=== PATIENT | female | born 1985 | race Caucasian/White ===

== ENCOUNTER 2019-11-16 18:39 | Emergency (ER) | payer OTHER, SELFPAY ==
[2019-11-16 19:20] VITALS: BP 137/85; PULSE 105; RESP 18; TEMP 36.9; O2SAT 100
--- NOTE | 2019-11-16 20:13 | ED.URI ---
HPI - URI/Sore Throat General Chief Complaint: Upper Respiratory Infection Stated Complaint: strep test Time Seen by Provider: 11/16/19 20:15 Source: patient and RN notes reviewed History of Present Illness HPI Narrative: 34 year old female who presents to express care with complaints of sore throat and hoarseness since yesterday, 3 to 4 days of head congestion, runny nose, fevers, cough, and ear pain. Patient also states dental pain to left#18 lower molar with noted caries. Patient states that she also has generalized body aches and fatigue, states is 12 weeks .Patient admits to tobacco abuse of 1/2ppd of cigarettes since age 19.Patient states that she has been taking tylenol for her discomfort. Patient states that she can take Amoxicillin though listed penicillin as allergy. MD elicited complaint: fever, cough, sore throat, rhinorrhea and nasal congestion Onset (ago): day(s) (3-4) Consistency: progressively worsening Severity: moderate Pain scale (0-10): 7 Description of mucous: clear Able to tolerate fluids by mouth: Yes Exacerbating factors: swallowing Relieving factors: nothing Associated symptoms: fever, chills, voice changes, rhinorrhea, nasal congestion, cough and other (dental pain) Treatments prior to arrival: acetaminophen Related Data Home Medications Medication Instructions Recorded Confirmed PNV cmb#95-ferrous fumarate-FA 1 tablet PO DAILY 11/16/19 11/16/19 [] Allergies Allergy/AdvReac Type Severity Reaction Status Date / Time Penicillins Allergy Intermediate hives Verified 11/16/19 19:44 Review of Systems Constitutional: Comments: CONSTITUTIONAL:Reports some fever, chills, or sweats. EYES: Denies visual changes, redness, or discharge. ENT: reports rhinorrhea, congestion, sore throat, or otalgia.also dental pain left lower molar CARDIOVASCULAR: Denies chest pain, palpitations, or edema. RESPIRATORY:occasional cough denies dyspnea. GASTROINTESTINAL: Denies abdominal pain, nausea, vomiting, or diarrhea. GENITOURINARY: Denies dysuria or hematuria. SKIN: Denies rash or itching. MUSCULOSKELETAL: Denies back pain, joint pain, body aches NEUROLOGIC: Denies headache, numbness, or weakness. PSYCHIATRIC: Denies anxiety or depression. [facility] Past Medical History Medical History (Updated 11/21/19 @ 10:05 by Mimi Mcgraw NP) Ovarian cyst Surgical History Surgical History (Updated 10/22/19 @ 01:26 by Rose Goode) H/O LEEP History of section History of left oophorectomy Social History Social History (Updated 10/22/19 @ 01:26 by Rose Goode) Smoking status: Current every day smoker Second hand tobacco smoke exposure: Yes Gender identity (if verbalized by the patient): Female Exam Narrative: Exam Narrative: GENERAL: Well-appearing, well-nourished, and in no acute distress. HEAD: Normocephalic, atraumatic. EYES: PERRLA and EOMI. ENT: Nares red, clear rhinorrhea no epistaxis. Mucous membranes moist.TM's normal with good light reflex, throat mild redness no tonsil enlargement lesions or exudate,post nasal drainage noted, dental caries to #18 tooth with voiced pain, mild redness of gum no drainage NECK: Supple.no lymphadenopathy CHEST: Clear to auscultation. No respiratory distress.SAO2 100% on room air HEART: Regular rate and rhythm. No murmur heard. Normal peripheral pulses. ABDOMEN: Soft, nontender, nondistended, normal active bowel sounds. EXTREMITIES: Normal range of motion. No edema. SKIN: Warm, dry, no rash. NEURO: No focal deficits. Alert and oriented x3. Course Vital Signs Vital signs: Vital Signs Temperature 36.9 C 11/16/19 19:20 Pulse Rate 105 H 11/16/19 19:20 Respiratory Rate 18 11/16/19 19:20 Blood Pressure 137/85 11/16/19 19:20 Pulse Oximetry 100 11/16/19 19:20 Temperature 36.9 C 11/16/19 19:20 Pulse Rate 105 H 11/16/19 19:20 Respiratory Rate 18 11/16/19 19:20 Blood Pressure 137/85 11/16/19 19:20 Pulse Oximetry
== END 2019-11-16 20:50 | disposition home or self-care (01) ==
PROVIDERS: Emergency Provider Registered Nurse
DX: K08.89 Other specified disorders of teeth and supporting structures (principal); J06.9 Acute upper respiratory infection, unspecified; J02.9 Acute pharyngitis, unspecified; F17.200 Nicotine dependence, unspecified, uncomplicated
CPT/HCPCS: 87081; 87804; 87880; 99213; G0463

== ENCOUNTER 2020-04-04 16:54 | Emergency (ER) | payer OTHER, SELFPAY ==
[2020-04-04 16:58] VITALS: BP 132/83; PULSE 120; RESP 20; TEMP 36.6; O2SAT 98
--- NOTE | 2020-04-04 17:29 | ED.GENADULT ---
HPI - General Adult General Chief complaint: Skin/Abscess/Foreign Body Stated complaint: bites all over body Time Seen by Provider: 04/04/20 17:29 Source: patient and RN notes reviewed Mode of arrival: ambulatory Limitations: no limitations History of Present Illness HPI narrative: This is a 35 years old female presents to the office for an evaluation of itchy lesions on her body. She noticed lesions after she stays at her friend house. She concerns for possible scabies or bedbugs after looked up her symptoms online; so she brought her back in to get a professional opinion. She is 7months . She tried to Neosporin and peroxide for her skin lesions. Related Data Home Medications Medication Instructions Recorded Confirmed PNV cmb#95-ferrous fumarate-FA 1 tablet PO DAILY 11/16/19 04/04/20 [] Allergies Allergy/AdvReac Type Severity Reaction Status Date / Time Penicillins Allergy Intermediate hives Verified 11/16/19 19:44 Review of Systems Review of Systems: Narrative: CONSTITUTIONAL: Denies fever or feeling ill ENT: Denies congestion CARDIOVASCULAR: Denies chest pain RESPIRATORY: Denies dyspnea GASTROINTESTINAL: Denies abdominal pain, nausea, vomiting SKIN: Reports itchy lesions throughout her body especially on her extremities MUSCULOSKELETAL: Denies acute back pain NEUROLOGIC: Denies lightheaded All other systems reviewed are negative, except as documented in HPI. PMFSH Past Medical History Medical History Ovarian cyst Surgical History Surgical History H/O LEEP History of section History of left oophorectomy Family History Family History Other Cerebrovascular accident Diabetes mellitus Heart disease Hypertension Social History Social History Smoking status: Current every day smoker Second hand tobacco smoke exposure: Yes Gender identity (if verbalized by the patient): Female Comments At time of signature, I agree with nursing past medical, surgical, social and family history. There is no relevant family history pertinent to the presenting complaint. Exam Narrative: Exam Narrative: GENERAL: This is a well-nourished, well-developed patient, in no apparent distress. CARDIOVASCULAR: Regular rate and rhythm without murmurs, gallops, or rubs. RESPIRATORY: Clear to auscultation. Breath sounds equal bilaterally. No wheezes, rales, or rhonchi. GASTROINTESTINAL: Abdomen soft, protrude, non-tender. Bowel sounds are active No guarding. SKIN: upper and lower extremity noted irregular patterns of nodules to papular erythema and some have excoriations and scab over the lesions. Lesion consistent with bedbug patterns. No dhara sign. No obvious tic levi. NEURO: awake, alert, and oriented to person, place and time. There were no obvious focal neurologic abnormalities. Steady gait PSY: appears anxious and very talkative Heth Coma Scale Eye Opening: Spontaneous 4 Adair Coma Scale Motor: Obeys Commands 6 Heth Coma Scale Verbal: Oriented 5 Course Vital Signs Vital signs: Vital Signs Temperature 97.9 F 04/04/20 16:58 Pulse Rate 120 H 04/04/20 16:58 Respiratory Rate 04/04/20 16:58 Blood Pressure 132/83 04/04/20 16:58 Pulse Oximetry 98 04/04/20 16:58 Temperature 97.9 F 04/04/20 16:58 Pulse Rate 120 H 04/04/20 16:58 Respiratory Rate 04/04/20 16:58 Blood Pressure 132/83 04/04/20 16:58 Pulse Oximetry 98 04/04/20 16:58 Medical Decision Making MDM Narrative Medical decision making narrative: Discharge instructions reviewed with patient, as well as provided in writing per nursing staff. The instructions also include specific and strict return/GO TO THE ER as well as f/u information. All questions have bee
== END 2020-04-04 17:43 | disposition home or self-care (01) ==
PROVIDERS: Emergency Provider Nurse Practitioner
DX: S40.862A Insect bite (nonvenomous) of left upper arm, initial encounter (principal); S80.862A Insect bite (nonvenomous), left lower leg, initial encounter; W57.XXXA Bitten or stung by nonvenomous insect and other nonvenomous arthropods, initial encounter; I10 Essential (primary) hypertension
CPT/HCPCS: 99203; G0463

== ENCOUNTER 2020-04-25 21:12 | Observation (INO) | payer OTHER, SELFPAY ==
[2020-04-25 21:26] VITALS: BP 153/95; PULSE 100
[2020-04-25 21:30] VITALS: BP 146/99; PULSE 98
[2020-04-25 21:45] VITALS: BP 126/88; PULSE 94
[2020-04-25 21:57] VITALS: TEMP 36.8
[2020-04-25 22:02] VITALS: BMI 25.7
--- NOTE | 2020-04-25 22:05 | OBADM ---
This patient, Luna Gan, admitted to the OB room OB Post 117 for observation. Patient/family oriented to hospital policies and general routines including ID bracelet, bed and alarms, visiting hours, pain management, procedures, bathroom and other care routines, personal items, smoking policy, room service/diet, and visiting hours. Patient/Family are encouraged to report perceived risks to care and to ask questions if they do not understand what they are told or what they should do.
--- NOTE | 2020-05-06 07:43 | PM.OBTRLD ---
OB - Triage/Final Diagnosis Final Diagnosis (1) Threatened labor: Code(s): O47.00 - False labor before 37 completed weeks of gestation, unspecified trimester Status: Acute
== END 2020-04-25 22:00 | disposition home or self-care (01) ==
PROVIDERS: Admitting Provider Obstetrics & Gynecology; Visit Provider Obstetrics & Gynecology
DX: O99.89 Other specified diseases and conditions complicating pregnancy, childbirth and the puerperium (principal); M54.9 Dorsalgia, unspecified; O42.919 Preterm premature rupture of membranes, unspecified as to length of time between rupture and onset of labor, unspecified trimester; Z3A.00 Weeks of gestation of pregnancy not specified
CPT/HCPCS: 84112; G0378; G0379

== ENCOUNTER 2020-05-14 20:10 | Observation (INO) | payer OTHER, SELFPAY ==
[2020-05-14] VITALS (8 sets, daily range): BP systolic 130–169; BP diastolic 91–104; PULSE 86–106; BMI 28.5
--- NOTE | 2020-05-14 20:50 | PC.NURSE ---
pt denies headache, epigastric pain or visual disturbances.
[2020-05-14 21:54] LABS: Basophils Absolute Auto 0.1 K/mm3 (0.0-0.1); Basophils Percent Auto 0.4 % (0.2-1.2); Eosinophils Absolute Auto 0.1 K/mm3 (0-0.3); Eosinophils Percent Auto 0.6 % (0-4.4); Hematocrit 32.9 % (37.0-47.0); Hemoglobin 11.4 g/dL (12.0-15.0); Immature Granulocyte Absolute 0.12 K/mm3 (0.00-0.031); Immature Granulocyte Percent A 0.9 % (0-0.5); Lymphocytes Percent Auto 24.3 % (18.3-44.2); Mean Corpuscular HGB Conc 34.7 g/dl (32-36); Mean Corpuscular Hemoglobin 30.6 pg (26-34); Mean Corpuscular Volume 88.2 fl (80-100); Mean Platelet Volume 10.2 fl (7.4-10.4); Neutrophils Absolute Auto 9.3 K/mm3 (1.3-6.7); Neutrophils Percent Auto 66.8 % (45.5-73.1); Platelet Count Result 306 k/mm3 (150-375); Red Blood Count 3.73 M/mm3 (4.2-5.4); Red Cell Distribution Width 14.1 % (11.5-14.5)
[2020-05-14 22:00] LABS: Creatinine Urine 145.1 mg/dL; Total Protein Urine Random 16 mg/dL
[2020-05-14 22:06] LABS: Add Urine Microscopic? YES; Appearance Urine Clear (Clear); Bacteria Urine Trace /hpf; Bilirubin Urine Negative (Negative); Blood Urine Negative (Negative); Color Urine Yellow (Yellow); Glucose Urine UA Negative (Negative); Ketones Urine Trace mg/dL (Negative); Leukocyte Esterase Ur Negative LEU/UL (NEGATIVE); Mucus Urine Few /lpf; Nitrate Urine Negative (Negative); Protein Urine Negative (Negative); RBC Urine 0-2 /hpf (0-2); Specific Grav Ur 1.021 (1.001-1.035); Squamous Epithelial Cell Urine Rare /hpf (Few); Urobilinogen Urine Negative mg/dL (<2.0); WBC Urine 0-3 /hpf (0-3)
[2020-05-14 22:06] LABS: Alanine Aminotransferase 13 U/L (4-35); Albumin Level 3.5 g/dL (3.5-5.1); Alkaline Phosphatase 195 U/L (38-126); Anion Gap 7 mmol/L (8-16); Aspartate Amino Transferase 21 U/L (14-36); Bilirubin,Total 0.3 mg/dL (0.2-1.3); Blood Urea Nitrogen 16 mg/dL (7-17); Calcium 10.1 mg/dL (8.4-10.2); Carbon Dioxide 19 mmol/L (22-30); Chloride 105 mmol/L (98-107); Estimated Glomerular Filt Rate > 60; Glucose 84 mg/dL (65-105); Potassium 3.7 mmol/L (3.4-5.0); Sodium 131 mmol/L (137-145); Uric Acid 5.7 mg/dL (2.5-7.5)
--- NOTE | 2020-05-14 22:10 | OBADM ---
This patient, Luna Gan, admitted to the OB room Labor/Delivery/Recovery 119 for observation. Patient/family oriented to hospital policies and general routines including ID bracelet, bed and alarms, visiting hours, pain management, procedures, bathroom and other care routines, personal items, smoking policy, room service/diet, and visiting hours. Patient/Family are encouraged to report perceived risks to care and to ask questions if they do not understand what they are told or what they should do.
--- NOTE | 2020-05-14 22:25 | PC.NURSE ---
Abril swain cnm in dept. reviewed tracing and labs, report given and orders received.
[2020-05-14] MEDS: NIFEdipine 30 MG TAB.ER.24 PO (22:38)
[2020-05-14 22:54] LABS: Amphetamine Screen Urine Negative (Negative); Barbiturate Screen Urine Negative (Negative); Benzodiazepines Screen Urine Negative (Negative); Cannabinoid Screen Urine Negative (Negative); Cocaine Screen Urine Negative (Negative); Methadone Screen Urine Negative (Negative); Opiate Screen Urine Negative (Negative); Phencyclidine Screen Urine Negative (Negative)
[2020-05-14] MEDS: LACTATED RINGERS 1,000 ML 125 ML IV CONT (23:00)
[2020-05-14] MEDS: TERBUTALINE SULFATE 1 MG/ML VIAL 0.25 MG SUB-Q (23:50)
[2020-05-15] VITALS: BP 126/78; PULSE 89
--- NOTE | 2020-05-15 00:15 | PC.NURSE ---
Pt states back pain and tightness to abd has spaced out and lessened since receiving Terbutaline
[2020-05-15 01:00] VITALS: BP 118/78; PULSE 95
[2020-05-15 05:36] VITALS: BP 107/73; PULSE 90
[2020-05-15 07:35] VITALS: BP 123/82; PULSE 96
[2020-05-15 07:40] VITALS: TEMP 36.6
[2020-05-15 09:02] LABS: Glucose Point of Care 88 (65-105)
--- NOTE | 2020-05-15 09:56 | PC.NURSE ---
0930- Patient called out stating she needed to talk to a nurse. This RN to room, patient on the phone with her mom, states What do I need to do leave the hospital. Patient wants to leave AMA. Will discuss with Dr. Hennessy that patient desires to leave AMA.
--- NOTE | 2020-05-15 09:58 | PC.NURSE ---
0940- Spoke with Dr. Hennessy that patient is going to sign out AMA. Per Dr. Hennessy, Patient to be seen in the [facility] office today at 2 pm. Also, will send 24 hour urine now, at 12 hours before patient leaves.
--- NOTE | 2020-05-15 09:59 | PC.NURSE ---
1000- Patient signed AMA paper. IV removed. Patient leaving hospital with her mom.
[2020-05-15 13:15] LABS: Collection Time Urine 24 HOURS
[2020-05-15 13:25] LABS: Creatinine Urine 63.1 mg/dL; Patient Weight 160 Lbs; Total Protein Urine Random 12 mg/dL
[2020-05-15 13:54] LABS: Creatinine Clearance Urine 74.1 ml/min (75-125); Total Protein Urine 24 Hr 144 MG/DAY (28-141); Total Volume 24 Hour Urine 1200 ml
--- NOTE | 2020-05-23 07:59 | PM.OBTRLD ---
OB - Triage/Final Diagnosis Evaluation Laboratory results: Laboratory Tests 05/14/20 05/14/20 05/14/20 21:36 21:36 21:45 WBC 14.0 H RBC 3.73 L Hgb 11.4 L Hct 32.9 L MCV 88.2 MCH 30.6 MCHC 34.7 RDW 14.1 Plt Count 306 MPV 10.2 Immature Gran % (Auto) 0.9 H Neut % (Auto) 66.8 Lymph % (Auto) 24.3 [place] % (Auto) 7.0 Eos % (Auto) 0.6 Baso % (Auto) 0.4 Lymph # (Auto) 3.40 H [place] # (Auto) 1.0 H Eos # (Auto) 0.1 Baso # (Auto) 0.1 Abs Immat Gran (auto) 0.12 H Absolute Neuts (auto) 9.3 H Absolute Nucleated RBC 0.0 Nucleated RBC % 0.0 Sodium 131 L Potassium 3.7 Chloride 105 Carbon Dioxide 19 L Anion Gap 7 L BUN 16 Creatinine 0.70 Estim Creat Clear Calc Not Reportable Estimated GFR > 60 Glucose 84 POC Capillary Glucose Uric Acid 5.7 Calcium 10.1 Total Bilirubin 0.3 AST 21 ALT 13 Alkaline Phosphatase 195 H Total Protein 7.0 Albumin 3.5 Urine Color Yellow Urine Appearance Clear Urine pH 6.0 Ur Specific [place] 1.021 Urine Protein Negative Urine Glucose (UA) Negative Urine Ketones Trace Ur Blood (Man) Negative Urine Nitrate Negative Urine Bilirubin Negative Urine Urobilinogen Negative Ur Leukocyte Esterase Negative Urine RBC 0-2 Urine WBC 0-3 Ur Squamous Epith Cells Rare Urine Bacteria Trace Urine Mucus Few H U Random Total Protein Ur 24 Hour Volume Urine Creatinine Creatinine Clearance Ur Total Protein 24 Hr Urine Opiates Screen Urine Methadone Screen Ur Barbiturates Screen Ur Phencyclidine Scrn Ur Amphetamine Screen U Benzodiazepines Scrn Urine Cocaine Screen U Cannabinoids Screen 05/14/20 05/14/20 05/15/20 21:45 21:45 09:00 WBC RBC Hgb Hct MCV MCH MCHC RDW Plt Count MPV Immature Gran % (Auto) Neut % (Auto) Lymph % (Auto) [place] % (Auto) Eos % (Auto) Baso % (Auto) Lymph # (Auto) [place] # (Auto) Eos # (Auto) Baso # (Auto) Abs Immat Gran (auto) Absolute Neuts (auto) Absolute Nucleated RBC Nucleated RBC % Sodium Potassium Chloride Carbon Dioxide Anion Gap BUN Creatinine Estim Creat Clear Calc Estimated GFR Glucose POC Capillary Glucose 88 Uric Acid Calcium Total Bilirubin AST ALT Alkaline Phosphatase Total Protein Albumin Urine Color Urine Appearance Urine pH Ur Specific [place] Urine Protein Urine Glucose (UA) Urine Ketones Ur Blood (Man) Urine Nitrate Urine Bilirubin Urine Urobilinogen Ur Leukocyte Esterase Urine RBC Urine WBC Ur Squamous Epith Cells Urine Bacteria Urine Mucus U Random Total Protein 16 Ur 24 Hour Volume Urine Creatinine 145.1 Creatinine Clearance Ur Total Protein 24 Hr Urine Opiates Screen Negative Urine Methadone Screen Negative Ur Barbiturates Screen Negative Ur Phencyclidine Scrn Negative Ur Amphetamine Screen Negative U Benzodiazepines Scrn Negative Urine Cocaine Screen Negative U Cannabinoids Screen Negative 05/15/20 10:19 WBC RBC Hgb Hct MCV MCH MCHC RDW Plt Count MPV Immature Gran % (Auto) Neut % (Auto) Lymph % (Auto) [place] % (Auto) Eos % (Auto) Baso % (Auto) Lymph # (Auto) [place] # (Auto) Eos # (Auto) Baso # (Auto) Abs Immat Gran (auto) Absolute Neuts (auto) Absolute Nucleated RBC Nucleated RBC % Sodium Potassium Chloride Carbon Dioxide Anion Gap BUN Creatinine Estim Creat Clear Calc Estimated GFR Glucose POC Capillary Glucose Uric Acid Calcium Total Bilirubin AST ALT Alkaline Phosphatase Total Protein Albumin Urine Color Urine Appearance Urine pH Ur Specific [place] Urine Protein Urine Glucose (UA) Urine Ketones Ur Blood (Man
== END 2020-05-15 10:00 | disposition left against medical advice (07) ==
LOC: ANHLDR 21:22 → ANHOBPP 22:46
PROVIDERS: Advanced Practice Midwife; Admitting Provider Obstetrics & Gynecology; Visit Provider Obstetrics & Gynecology
DX: O13.9 Gestational [pregnancy-induced] hypertension without significant proteinuria, unspecified trimester (principal); O60.00 Preterm labor without delivery, unspecified trimester; Z3A.00 Weeks of gestation of pregnancy not specified
CPT/HCPCS: 36415; 80053; 80307; 81001; 81050; 82570; 82575; 84112; 84156; 84550; 85025; 87086; 87088; 96360; 96361; 96372; A9270; G0378; G0379; J3105; J7120

== ENCOUNTER 2020-05-20 19:34 | Inpatient (IN) | payer OTHER, SELFPAY ==
[2020-05-20] VITALS (30 sets, daily range): BP systolic 86–141; BP diastolic 20–103; PULSE 76–158; RESP 15–18; TEMP 36.2–37.1; O2SAT 96–100; BMI 28.4
--- NOTE | 2020-05-20 20:12 | WPDANESEPP ---
Anes - Eval Pre Procedure Procedure: Repeat c section Date/Time: 05/20/20 20:12 Surgeon: Fernando Preop Diagnosis: Previous c section Pre Op Diagnosis: contractions Patient Data Age: 35 Gender: F Height: Weight: Last Vital Signs Pulse 102 H 05/20/20 20:01 BP 131/96 H 05/20/20 20:01 Allergies Allergy/AdvReac Type Severity Reaction Status Date / Time Penicillins Allergy Intermediate hives Verified 05/15/20 14:11 Home Medications Medication Instructions Recorded Confirmed Type PNV cmb#95-ferrous fumarate-FA 1 tablet PO DAILY 11/16/19 05/14/20 History [] Patient hx anesthesia problems: none Family hx anesthesia problems: none PMFSH Past Medical History Medical History (Updated 05/20/20 @ 20:15 by Agus Green CRNA) Gestational diabetes Gestational hypertension Ovarian cyst Pain, dental Pharyngitis Threatened labor Upper respiratory infection Surgical History Surgical History H/O LEEP History of section X2 08/16/01 C/S male 6lbs 14oz 06/25/04 C/S female 6lbs 10 oz History of left oophorectomy Family History Family History Other Cerebrovascular accident Diabetes mellitus Heart disease Hypertension Social History Social History Second hand tobacco smoke exposure: Yes Alcohol intake: never Substance use: never Gender identity (if verbalized by the patient): Female Exam Day of Procedure 05/20/20 20:12
--- NOTE | 2020-05-20 21:55 | PM.IMHP ---
H&P: HPI History of Present Illness Date/Time: 05/20/20 21:55 Chief complaint: contractions Narrative: Luna Gan is a 35 year old female 3 para 2001 at 37 weeks gestation who presents with painful uterine contractions. After period of observation on some cervical dilation was observed in Labor and delivery. She denies any loss of fluid. She denies any vaginal bleeding. Reports good movement. She denies any headache, blurry vision, epigastric pain. She denies any nausea, vomiting, fever, chills, chest pain, shortness of breath. Review of Systems Constitutional: Constitutional: Reports no additional constitutional complaints, Denies fatigue, Denies headache(s), Denies lethargy and Denies weakness Eyes: Eyes: Reports no additional eye complaints, Denies blurry vision and Denies photophobia ENT: Reports as per HPI, Denies headache(s) and Denies neck pain Cardiovascular: Cardiovascular: Denies chest pain, Denies diaphoresis, Denies leg edema, Denies palpitations and Denies dyspnea Respiratory: Respiratory: Denies hemoptysis, Denies dyspnea and Denies wheezing Gastrointestinal: Gastrointestinal: Denies abdominal pain, Denies melena, Denies bloating, Denies hematochezia, Denies nausea and Denies vomiting Genitourinary: Genitourinary: Reports no additional female genitourinary complaints Musculoskeletal: Musculoskeletal: Denies joint swelling, Denies neck pain, Denies numbness and Denies stiffness Neurologic: Denies Abnormal speech present, Denies confusion, Denies headache(s), Denies numbness and Denies weakness Psychiatric: Psychiatric: Denies anxiety, Denies confusion, Denies depression, Denies homicidal ideation and Denies suicidal ideation Endocrine: Endocrine: Denies fatigue and Denies palpitations Allergic/Immunologic: Allergic/Immunologic: Denies wheezing PMFSH Past Medical History Medical History (Updated 05/20/20 @ 21:57 by Юлия King MD) Gestational diabetes Gestational hypertension Ovarian cyst Pain, dental Pharyngitis Threatened labor Upper respiratory infection Surgical History Surgical History (Updated 05/20/20 @ 21:57 by Юлия King MD) H/O LEEP History of section X2 08/16/01 C/S male 6lbs 14oz 06/25/04 C/S female 6lbs 10 oz History of left oophorectomy Family History Family History Other Cerebrovascular accident Diabetes mellitus Heart disease Hypertension Social History Social History (Updated 05/20/20 @ 20:16 by Jeanne Fortnue, MIRA) Second hand tobacco smoke exposure: Yes Alcohol intake: never Substance use: former Substance use type: opiates Gender identity (if verbalized by the patient): Female Meds Home Medications and Allergies Home Medications Medication Instructions Recorded Confirmed Type PNV cmb#95-ferrous fumarate-FA 1 tablet PO DAILY 11/16/19 05/14/20 History [] Allergies Allergy/AdvReac Type Severity Reaction Status Date / Time Penicillins Allergy Intermediate hives Verified 05/15/20 14:11 Vital Signs Vital Signs - 24 hr 05/20/20 19:49 05/20/20 20:01 05/20/20 20:16 Temperature Pulse Rate 99 102 H 100 Blood Pressure 129/103 H 131/96 H 136/88 05/20/20 20:31 05/20/20 20:46 05/20/20 21:01 Temperature Pulse Rate 102 H 101 H 82 Blood Pressure 109/93 H 126/92 H 139/96 H 05/20/20 21:07 05/20/20 21:16 05/20/20 21:46 Temperature 98.7 F Pulse Rate 77 95 Blood Pressure 133/91 H 141/90 H Exam Const: General: healthy appearing, comfortable and no acute distress; No confusion Orientation/consciousness: No confusion Eyes: Direct Ophthalmoscopy: No photophobia Resp: Auscultation: clear to auscultation bilaterally, no rales, no rhonchi and no wheezes Cardio: Rate: regular rate Heart sounds: no click, no murmurs and no rubs GI: Inspection: non-distended GI Palp: No abdominal tenderness Ausculta
[2020-05-20 21:56] LABS: Basophils Absolute Auto 0.1 K/mm3 (0.0-0.1); Basophils Percent Auto 0.4 % (0.2-1.2); Eosinophils Absolute Auto 0.1 K/mm3 (0-0.3); Eosinophils Percent Auto 0.8 % (0-4.4); Hematocrit 36.5 % (37.0-47.0); Hemoglobin 12.6 g/dL (12.0-15.0); Immature Granulocyte Absolute 0.09 K/mm3 (0.00-0.031); Immature Granulocyte Percent A 0.6 % (0-0.5); Lymphocytes Absolute Auto 3.04 K/mm3 (0.9-3.2); Lymphocytes Percent Auto 20.8 % (18.3-44.2); Mean Corpuscular HGB Conc 34.5 g/dl (32-36); Mean Corpuscular Hemoglobin 30.3 pg (26-34); Mean Corpuscular Volume 87.7 fl (80-100); Mean Platelet Volume 10.4 fl (7.4-10.4); Monocytes Absolute Auto 0.8 K/mm3 (0.1-0.6); Monocytes Percent Auto 5.4 % (2.6-8.5); Neutrophils Absolute Auto 10.5 K/mm3 (1.3-6.7); Platelet Count Result 338 k/mm3 (150-375); Red Blood Count 4.16 M/mm3 (4.2-5.4); Red Cell Distribution Width 14.2 % (11.5-14.5); White Blood Count 14.6 K/mm3 (4.5-10.0)
[2020-05-20 22:08] LABS: Alanine Aminotransferase 15 U/L (4-35); Albumin Level 3.6 g/dL (3.5-5.1); Alkaline Phosphatase 231 U/L (38-126); Anion Gap 9 mmol/L (8-16); Aspartate Amino Transferase 25 U/L (14-36); Bilirubin,Total 0.3 mg/dL (0.2-1.3); Blood Urea Nitrogen 11 mg/dL (7-17); Calcium 9.5 mg/dL (8.4-10.2); Carbon Dioxide 18 mmol/L (22-30); Chloride 106 mmol/L (98-107); Estimated CRCL calculation 105 ml/min; Estimated Glomerular Filt Rate > 60; Glucose 83 mg/dL (65-105); Potassium 3.9 mmol/L (3.4-5.0); Sodium 133 mmol/L (137-145); Uric Acid 5.9 mg/dL (2.5-7.5)
[2020-05-20 22:21] LABS: Amphetamine Screen Urine Negative (Negative); Barbiturate Screen Urine Negative (Negative); Benzodiazepines Screen Urine Negative (Negative); Cannabinoid Screen Urine Negative (Negative); Cocaine Screen Urine Negative (Negative); Methadone Screen Urine Negative (Negative); Opiate Screen Urine Negative (Negative); Phencyclidine Screen Urine Negative (Negative)
--- NOTE | 2020-05-20 22:46 | PM.PROC ---
Procedure Note - Detailed Date of procedure: 05/20/20 Pre-op diagnosis: contractions Previous LTCS Post-op diagnosis: same Procedure performed: Repeat low-transverse delivery Description of procedure: The patient was taken the operating room. She was prepped and draped in the dorsal supine position with leftward tilt after induction of spinal anesthetic. When anesthesia was found to be adequate a low-transverse skin incision was made and carried down to the level the fascia with the knife. The fascial incision was made at the midline with a scalpel. The fascial incision was extended laterally with Price scissors. The fascia was tented upward superior and inferior with Guy clamps. The rectus muscles were dissected off bluntly. The rectus muscles at the midline. The preperitoneal fat was dissected bluntly at the superior aspect of the separate the rectus muscles. The peritoneal cavity was entered bluntly in the same area. The peritoneal incision was extended superior and inferior with good position of bladder. Bladder blade was inserted. A low-transverse incision was made on the uterus with the scalpel. It was carried down the level of the amniotic cavity with a knife. The amniotic cavity bluntly. The uterine incision was made laterally with blunt traction. The infant was delivered. The cord was clamped and cut. The was handed off to waiting pediatric staff. Cord bloods were obtained. The placenta was removed manually. The uterus was exteriorized. Uterus cleared of all clots and debris. Uterus closed in 0 Vicryl in a running locked fashion. An imbricating layer of 0 Vicryl was also placed on the to bolster the closure. The uterus was returned to the abdomen. The gutters were cleared of all clots and debris. The fascia was closed 0 Vicryl in a running fashion. Subcutaneous tissue was irrigated and bleeding areas were cauterized. The skin was closed with subcuticular absorbable khadra. The incision was covered with derma padron. The patient tolerated the procedure well. She was taken recovery room stable condition. Sponge, lap, needle counts were correct x2. Anesthesia: spinal Surgeon: Юлия King MD Estimated blood loss (mL): 560 Drains: No Packing: No Pathology: none sent Complications: No immediate complications Condition: stable Disposition: floor Findings: Normal maternal anatomy. Average size infant with normal Apgars.
[2020-05-20 23:02] LABS: HIV 1/2 Ab P24 Ag Result Negative (Negative)
[2020-05-20] MEDS: OXYTOCIN 30 UNITS/NS 500 ML 30 UNITS/500 ML BAG 125 UNITS IV CONT (23:04)
[2020-05-20 23:11] LABS: Hepatitis B Surface Antigen Negative (Negative)
[2020-05-20 23:23] LABS: Rubella IgG Antibody 85.3 IU/ML
--- NOTE | 2020-05-20 23:47 | LDADM ---
This patient, Luna Gan, was admitted to Labor/Delivery/Recovery 120 on 05/20/20 at 19:35. Plans for labor, pain management and were discussed with patient. Patient/family oriented to hospital policies and general routines including ID bracelet, bed and alarms, visiting hours, pain management, procedures, bathroom and other care routines, personal items, smoking policy, room service/diet and guest tray routines, security routines, and visiting hours. Patient/Family are encouraged to report perceived risks to care and to ask questions if they do not understand what they are told or what they should do. See OBIX for further documentation.
[2020-05-21] VITALS (30 sets, daily range): BP systolic 94–138; BP diastolic 52–94; PULSE 62–776; RESP 14–20; TEMP 36.3–36.8; O2SAT 98–100
[2020-05-21] MEDS: KETOROLAC 30 MG/ML VIAL (*BKC) IV PUSH ×2 (01:08→07:48)
--- NOTE | 2020-05-21 01:21 | PC.NURSE ---
This patient, Luna Gan, was received from labor and delivery on 05/21/20 at 0121. Personal belongings list checked and signed. Patient/family oriented to unit policies and routines
[2020-05-21] MEDS: DEXTROSE 5%/0.45% SOD CHL 1,000 ML 125 ML IV CONT (03:07)
[2020-05-21 05:43] LABS: Basophils Percent Auto 0.3 % (0.2-1.2); Eosinophils Absolute Auto 0.1 K/mm3 (0-0.3); Eosinophils Percent Auto 0.9 % (0-4.4); Hematocrit 32.2 % (37.0-47.0); Immature Granulocyte Absolute 0.08 K/mm3 (0.00-0.031); Immature Granulocyte Percent A 0.6 % (0-0.5); Lymphocytes Absolute Auto 2.83 K/mm3 (0.9-3.2); Lymphocytes Percent Auto 20.4 % (18.3-44.2); Mean Corpuscular HGB Conc 34.2 g/dl (32-36); Mean Corpuscular Hemoglobin 30.5 pg (26-34); Mean Corpuscular Volume 89.2 fl (80-100); Monocytes Absolute Auto 0.9 K/mm3 (0.1-0.6); Monocytes Percent Auto 6.1 % (2.6-8.5); Neutrophils Percent Auto 71.7 % (45.5-73.1); Platelet Count Result 275 k/mm3 (150-375); Red Blood Count 3.61 M/mm3 (4.2-5.4); White Blood Count 13.9 K/mm3 (4.5-10.0)
[2020-05-21 07:12] LABS: Rapid Plasma Reagin Non-Reactive (NonReactive)
[2020-05-21] MEDS: DOCUSATE SODIUM 100 MG CAPSULE PO ×2 (07:47→17:52)
--- NOTE | 2020-05-21 07:51 | WPDANLDPN2 ---
Anes-Prog Note L&D Date/Time: 05/21/20 07:51 Comfortable throughout: section Neuraxial method: spinal Epidural/Spinal procedure site: clean & non-tender Neuro status: Neuro function grossly intact. Cardiovascular status: normal Respiratory status: normal Airway patency: baseline Mental status: baseline Post-Op hydration status: normal Vital Signs: Last Vital Signs Temp 36.3 C L 05/21/20 04:00 Pulse 75 05/21/20 04:00 Resp 16 05/21/20 04:00 BP 117/79 05/21/20 04:00 Pulse Ox 100 05/21/20 04:00 I/O: Intake & Output 05/20/20 05/20/20 05/21/20 15:59 23:59 07:59 Intake Total 250 Output Total 50 904 Balance -50 -654 Post-procedural complaints: none Patient feedback: Patient satisfied with anesthetic care.
--- NOTE | 2020-05-21 07:51 | WPDANLDNPN2 ---
Anes-Prog Note L&D-Neuraxial Date/Time: 05/21/20 07:51 Neuraxial medications: intrathecal PF morphine Opiod-related complaints: none Patient feedback: Patient satisfied with post-operative pain management.
--- NOTE | 2020-05-21 08:17 | PM.OBPNVD ---
OB - PN: Subj Subjective Date/time seen: 05/21/20 08:17 Patient comments: no complaints, pain well controlled, incisional pain, tolerating diet and flatus present OB - PN: Obj Data Labs CBC & Chem 7: 05/21/20 05:10 05/20/20 21:47 Labs: Laboratory Results - last 24 hr 05/20/20 05/20/20 05/20/20 21:47 21:47 21:47 WBC 14.6 H RBC 4.16 L Hgb 12.6 Hct 36.5 L MCV 87.7 MCH 30.3 MCHC 34.5 RDW 14.2 Plt Count 338 MPV 10.4 Immature Gran % (Auto) 0.6 H Neut % (Auto) 72.0 Lymph % (Auto) 20.8 Crane % (Auto) 5.4 Eos % (Auto) 0.8 Baso % (Auto) 0.4 Lymph # (Auto) 3.04 Crane # (Auto) 0.8 H Eos # (Auto) 0.1 Baso # (Auto) 0.1 Abs Immat Gran (auto) 0.09 H Absolute Neuts (auto) 10.5 H Absolute Nucleated RBC 0.0 Nucleated RBC % 0.0 Sodium Potassium Chloride Carbon Dioxide Anion Gap BUN Creatinine Estim Creat Clear Calc Estimated GFR Glucose Uric Acid Calcium Total Bilirubin Direct Bilirubin AST ALT Alkaline Phosphatase Total Protein Albumin Urine Opiates Screen Urine Methadone Screen Ur Barbiturates Screen Ur Phencyclidine Scrn Ur Amphetamine Screen U Benzodiazepines Scrn Urine Cocaine Screen U Cannabinoids Screen RPR Non-reactive Hep Bs Antigen HIV 1&2 Ab/P24 Ag 4thGn Rubella IgG Antibody Blood Type A Positive Antibody Screen Negative 05/20/20 05/20/20 05/20/20 21:47 21:47 21:47 WBC RBC Hgb Hct MCV MCH MCHC RDW Plt Count MPV Immature Gran % (Auto) Neut % (Auto) Lymph % (Auto) Crane % (Auto) Eos % (Auto) Baso % (Auto) Lymph # (Auto) Crane # (Auto) Eos # (Auto) Baso # (Auto) Abs Immat Gran (auto) Absolute Neuts (auto) Absolute Nucleated RBC Nucleated RBC % Sodium Potassium Chloride Carbon Dioxide Anion Gap BUN Creatinine Estim Creat Clear Calc Estimated GFR Glucose Uric Acid 5.9 Calcium Total Bilirubin Direct Bilirubin AST ALT Alkaline Phosphatase Total Protein Albumin Urine Opiates Screen Urine Methadone Screen Ur Barbiturates Screen Ur Phencyclidine Scrn Ur Amphetamine Screen U Benzodiazepines Scrn Urine Cocaine Screen U Cannabinoids Screen RPR Hep Bs Antigen HIV 1&2 Ab/P24 Ag 4thGn Negative Rubella IgG Antibody 85.3 Blood Type Antibody Screen 05/20/20 05/20/20 05/20/20 21:47 21:47 21:52 WBC RBC Hgb Hct MCV MCH MCHC RDW Plt Count MPV Immature Gran % (Auto) Neut % (Auto) Lymph % (Auto) Crane % (Auto) Eos % (Auto) Baso % (Auto) Lymph # (Auto) Crane # (Auto) Eos # (Auto) Baso # (Auto) Abs Immat Gran (auto) Absolute Neuts (auto) Absolute Nucleated RBC Nucleated RBC % Sodium 133 L Potassium 3.9 Chloride 106 Carbon Dioxide 18 L Anion Gap 9 BUN 11 D Creatinine 0.60 L Estim Creat Clear Calc 105 Estimated GFR > 60 Glucose 83 Uric Acid Calcium 9.5 Total Bilirubin 0.3 Direct Bilirubin 0.0 AST 25 ALT 15 Alkaline Phosphatase 231 H Total Protein 7.0 Albumin 3.6 Urine Opiates Screen Negative Urine Methadone Screen Negative Ur Barbiturates Screen Negative Ur Phencyclidine Scrn Negative Ur Amphetamine Screen Negative U Benzodiazepines Scrn Negative Urine Cocaine Screen Negative U Cannabinoids Screen Negative RPR Hep Bs Antigen Negative HIV 1&2 Ab/P24 Ag 4thGn Rubella IgG Antibody Blood Type Antibody Screen 05/21/20 05:10 WBC 13.9 H RBC 3.61 L Hgb 11.0 L Hct 32.2 L MCV 89.2 MCH 30.5 MCHC 34.2 RDW 14.0 Plt Count 275 MPV 10.0 Immature Gran % (Auto) 0.6 H Neut % (Auto) 71.7 Lymph % (Auto) 20.4 Crane % (Au
[2020-05-21] MEDS: IBUPROFEN 600 MG TABLET PO ×2 (14:55→21:08)
[2020-05-21] MEDS: SIMETHICONE 80 MG TAB.CHEW PO (17:52)
[2020-05-22] MEDS: IBUPROFEN 600 MG TABLET PO ×2 (03:33→09:59)
[2020-05-22] MEDS: SIMETHICONE 80 MG TAB.CHEW PO ×2 (06:57→09:57)
[2020-05-22] MEDS: DOCUSATE SODIUM 100 MG CAPSULE PO (06:57)
--- NOTE | 2020-05-22 07:00 | PC.NURSE ---
PT introductions made and plan of care discussed per post op c section, pain management, bottle feeding, daily care activities and pending discharge to home. PT verbalized understanding of such care.
[2020-05-22 08:10] VITALS: BP 143/78; PULSE 86; RESP 18; TEMP 36.1
--- NOTE | 2020-05-22 08:12 | PM.OBPNVD ---
OB - PN: Subj Subjective Date/time seen: 05/22/20 08:12 OB - PN: Obj Data Labs CBC & Chem 7: 05/21/20 05:10 05/20/20 21:47 OB - PN A/P Time Spent With Patient Time: Total time spent is greater than 50% in coordination of care (as documented) at patient's floor/unit and/or counseling patient: Review of Systems Review of Systems: All systems reviewed & are unremarkable except as noted in HPI and below Exam Narrative: Exam Narrative: Fundus firm and vaginal flow controlled. Incision open to air and healing well. No redness or drainage. Neg homans. No redness, warmth or tenderness of lower ext. Const: General: comfortable Resp: Effort & Inspection: normal respiratory effort Cardio: Rate: regular rate Psych: Appearance: grossly normal Affect: normal affect Attitude: cooperative Judgement: Good judgement present (Psych)
--- NOTE | 2020-05-22 09:00 | PC.NURSE ---
Patient viewed the discharge video Mother & Baby Care, The First Two Weeks . Patient was given the opportunity and encouraged to ask questions. Patient verbalized understanding of information shared and has been given the mother/baby guide for home reference.
[2020-05-22] MEDS: TETANUS,DIPHTHERIA,AC PERTUSSIS ADULT (0.5 ML) BOOSTRIX IM (09:57)
--- NOTE | 2020-05-22 11:45 | PC.NURSE ---
PT received discharge instructions per protocol and verbalized understanding of such instructions.
--- NOTE | 2020-05-22 12:16 | PC.NURSE ---
PT discharged to home ambulatory accompanied by family and and taken to waiting car. Follow up appts confirmed
--- NOTE | 2020-05-22 13:25 | PC.NURSE ---
PT received discharge instructions per protocol and verbalized understanding of such care.
[2020-05-24 10:17] VITALS: BP 119/84; PULSE 94; RESP 16; TEMP 36.8; O2SAT 98
--- NOTE | 2020-06-02 20:42 | PM.OBDSVD ---
DS: Admitting Diagnosis Admitting Diagnosis Admitting Diagnosis: Labor/ repeat c/s DS: Discharge Diagnosis Discharge Diagnosis (1) induced hypertension, antepartum: Code(s): O13.9 - Gestational [-induced] hypertension without significant proteinuria, unspecified trimester Status: Acute (2) Previous section: Code(s): Z98.891 - History of uterine scar from previous surgery Status: Acute (3) Pain, dental: Code(s): K08.89 - Other specified disorders of teeth and supporting structures Status: Acute (4) Upper respiratory infection: Qualifiers: URI type: unspecified URI Qualified Code(s): J06.9 - Acute upper respiratory infection, unspecified Code(s): J06.9 - Acute upper respiratory infection, unspecified Status: Acute OB - DS: Summary OB Procedures : None OB Procedures Intrapartum: OB Procedures: : None Peripartum Data Infant Delivery Method: Section Procedures: Procedures Operation Date: 05/20/20 21:40 Actual Procedures Side Surgeon p Section Not Applicable Юлия King MD Time Spent with Patient Time attestation: Total time spent providing and/or coordinating discharge services: Discharge Plan Discharge Attending physician on discharge: Юлия King Consulting providers: Pao Devine Discharging Clinician: Akila Hennessy Patient Disposition: Home, Self-Care Activity: may shower and pelvic rest Diet: regular Wound Care Instructions: incision open to air Discharge Instructions: Education: Mom and Baby Guide Given to: Mother Follow-Up: Call your delivering provider's office for an appointment to be seen in: 1 Week Mom and baby should come to the [facility] for the follow-up appointment. Appointment Date/Time: May 24, 2020 at 10:00 am What to expect at your follow-up visit: Blood Pressure Check Call [phone] if you are unable to keep your appointment time. BREAST CARE: * Wear a snug supportive bra. * For engorgement discomfort: Bottle Feeding: * May apply ice packs ABDOMINAL INCISION: (if applicable) * Allow incision to air dry * Do NOT use lotions for powders on your incision * When showering, allow soap and water to run over the incision, but do not wash incision PERINEAL CARE: * Until bleeding stops, use your mike bottle after urinating * Change your pad frequently throughout the day * No tub baths until seen by your physician - You may shower ACTIVITY: * Rest as much as possible. * Do not exercise or lift anything heavier than your baby (such as laundry or other children.) * Avoid stairs or driving as much as possible. * Do not put anything into the vagina. No douching, tampons, or sexual activity until seen by physician. NOTIFY PHYSICIAN IF YOU HAVE ANY QUESTIONS OR IF ANY OF THE FOLLOWING SYMPTOMS OCCUR: * If your incision becomes red, swollen, or more painful than what you have experienced in the hospital. * If your vaginal bleeding becomes foul smelling. * If your vaginal bleeding becomes more heavy than a period or if your bleeding changes from pink to bright red. However, you may pass an occasional walnut-sized clot once or twice for the first week . * If you experience a sharp, shooting pain in you calves. * If you discover a hard, reddened area on your breast or if you experience flu-like symptoms. * If you have a fever of 100.4 or greater DIET: * Eat regular, well-balanced meals. * Drink plenty of fluids daily. If , drink to thirst. Patient Instructions: Antibiotic Form, How to Stop Smoking (DC) Stand Alone Forms: General Discharge Information Follow-up/Referrals: Akila Hennessy MD [Physician] - 1 Week Discharge Medications: New hydrocodone-acetaminophen 5-325 mg Tablet 1 tablet PO Q4H PRN (Reason: Moderate Pain (4-6)) Q
== END 2020-05-22 12:16 | disposition home or self-care (01) | DRG 540 ==
LOC: ANHLDR 05-21 00:16 → ANHOB2 05-21 01:58
PROVIDERS: Admitting Provider Obstetrics & Gynecology; Visit Provider Obstetrics & Gynecology
PROC: 10D00Z1 Extraction of Products of Conception, Low, Open Approach (ICD-10-PCS; CPT 59514; principal; 2020-05-20 21:40)
DX: O34.211 Maternal care for low transverse scar from previous cesarean delivery (principal); Z37.0 Single live birth; Z3A.37 37 weeks gestation of pregnancy; O24.429 Gestational diabetes mellitus in childbirth, unspecified control; O13.4 Gestational [pregnancy-induced] hypertension without significant proteinuria, complicating childbirth; O69.81X0 Labor and delivery complicated by cord around neck, without compression, not applicable or unspecified
CPT/HCPCS: 36415; 80053; 80307; 82248; 84550; 85025; 86592; 86703; 86762; 86850; 86900; 86901; 87340; 90715; A9270; G0432; J1885; J2274; J2370; J2405; J2590

== ENCOUNTER → 2020-11-09 01:01 | Outpatient (CLI) | payer OTHER, SELFPAY ==
[2020-11-09 20:39] LABS: SARS-CoV-2 RNA PCR Negative
== END ==
PROVIDERS: Visit Provider Obstetrics & Gynecology
DX: Z01.812 Encounter for preprocedural laboratory examination (principal); Z20.822 Contact with and (suspected) exposure to COVID-19
CPT/HCPCS: C9803; U0003; U0005

== ENCOUNTER 2020-11-13 01:04 | Day surgery (SDC) | payer OTHER, SELFPAY ==
[2020-11-07 15:41] VITALS: BMI 25.7
[2020-11-13] VITALS (7 sets, daily range): BP systolic 87–146; BP diastolic 46–87; PULSE 68–83; RESP 14–20; TEMP 36.3–36.4; O2SAT 95–99
[2020-11-13] MEDS: ACETAMINOPHEN 500 MG TABLET 1000 MG PO (06:27)
[2020-11-13] MEDS: KETOROLAC 15 MG/ML VIAL (*BKC) IV PUSH (06:27)
[2020-11-13] MEDS: LACTATED RINGERS 1,000 ML 30 ML IV CONT (06:27)
--- NOTE | 2020-11-13 06:38 | WPDANESEPPF ---
Anes - Initial Pre Proc Eval Procedure: Operation Date: 11/13/20 07:30 Proposed Procedures p Laparoscopic Tubal Sterilization With Fulguration - Юлия King MD Date/Time: 11/13/20 06:38 Surgeon: Юлия King MD Pre Op Diagnosis: Desires Sterilization Patient Data Age: 35 Gender: F Height: 5 ft 3 in Weight: 66 kg Allergies Allergy/AdvReac Type Severity Reaction Status Date / Time Penicillins Allergy Intermediate hives Verified 11/07/20 15:45 Home Medications Medication Instructions Recorded Confirmed Type No Home Medications 11/07/20 11/07/20 History Patient hx anesthesia problems: none Family hx anesthesia problems: none PMFSH Past Medical History Medical History Gestational diabetes Gestational hypertension Ovarian cyst Pain, dental Pharyngitis Positive urine drug screen +OPI 05/08/20 Threatened labor Upper respiratory infection Surgical History Surgical History H/O LEEP History of section 08/16/01 C/S male 6lbs 14oz 06/25/04 C/S female 6lbs 10 oz 05/20/20, c/s, full term 37w4d, female, 6#5, GDM, GHTN History of left oophorectomy Family History Family History Father Diabetes mellitus Hypertension Sibling Hypertension Mother Hypertension Other Cerebrovascular accident Heart disease Social History Social History Smoking packs per day: 0.5 Smoking cigarettes per day: 10.0 Years smoked: 20 Smoking pack-years: 10.00 Smoking status: Current every day smoker Tobacco type: cigarettes Second hand tobacco smoke exposure: Yes Alcohol intake: never Substance use: current Substance use type: opiates Other substance usage details: pos uds 05/08/20 Living arrangements: with family Gender identity (if verbalized by the patient): Female Spiritual care concerns: No Anes - Eval Final PreProcedure Day of Procedure 11/13/20 06:38 Patient weight: overweight Heart: regular rate and rhythm Lungs: clear to auscultation Airway: Mallampati scale class II Neurological: alert and oriented Last oral intake: >/= 8 hours ASA classification: II Emergent: no Anesthetic plan: proceed Anesthesia type and monitoring: general ETT and standard monitoring Informed Consent: The patient's anesthetic plan and its attendant risks and benefits were discussed with the patient/family/POA. Questions were solicited and answers provided to the satisfaction of the patient/family/POA.
--- NOTE | 2020-11-13 07:10 | WPDHPUPDATE1 ---
History and Physical Update Update Date/Time: 11/13/20 07:10 History and Physical has been reviewed, including an updated exam of the patient. There are NO changes in the patient's condition. Risks, benefits, and alternatives have been discussed and questions answered. Patient agrees to proceed with procedure.
--- NOTE | 2020-11-13 07:55 | PM.PROC ---
Procedure Note - Detailed Date of procedure: 11/13/20 Pre-op diagnosis: Desires Sterilization Post-op diagnosis: same Procedure performed: Laparoscopic bilateral tubal ligation Description of procedure: Patient was taken the operating room. She has prepped draped in the dorsal lithotomy position after induction of general anesthesia. A 5 mm abdominal incision was made in left upper quadrant of the abdomen with scalpel. A 5 mm trocars inserted the intra-abdominal cavity under direct visualization of the scope. Pneumoperitoneum was achieved. A 5 mm periumbilical incision was made using a scalpel on the abdominal scan. A 5 mm trocar was inserted the intra-abdominal cavity under visualization of the scope. The fallopian tube was grasped with the bipolar cautery in the ampullary region. It was completely desiccated in a 1.5 cm area of the fallopian tube. This was performed in identical fashion on the contralateral side. The instruments were withdrawn. The pneumoperitoneum was reduced. The trocars were removed. The skin was closed with subcuticular 4 Monocryl. This incisions were covered with Dermabond. The patient tolerated the procedure well. She was taken to recover room in stable condition. Anesthesia: GETA Surgeon: Юлия King MD Estimated blood loss (mL): 10 Drains: No Packing: No Pathology: none sent Complications: No immediate complications Condition: stable Disposition: PACU Findings: Normal female pelvic anatomy.
[2020-11-13] MEDS: HYDROmorphone HCL INJ (*CRX) 1 MG/ML SYR 0.5 MG IV PUSH (08:26)
[2020-11-13] MEDS: oxyCODONE HCL (*CRX) 5 MG TAB IR PO (09:45)
--- NOTE | 2020-11-13 09:50 | SUR.PHASEII ---
0940; PT AWAKE AND ALERT. STATES MILD PAIN/CRAMPING. WOULD LIKE A PAIN PILL. PT STATES SHES READY TO GO HOME
== END 2020-11-13 09:55 | disposition home or self-care (01) ==
PROVIDERS: Visit Provider Obstetrics & Gynecology
PROC: (CPT 58671; principal; 2020-11-13 07:30)
DX: Z30.2 Encounter for sterilization (principal); F17.210 Nicotine dependence, cigarettes, uncomplicated; F11.90 Opioid use, unspecified, uncomplicated
CPT/HCPCS: 58670; A9270; J0330; J1100; J1170; J1885; J2001; J2250; J2405; J2704; J3010; J7120

== ENCOUNTER 2021-07-06 19:35 | Emergency (ER) | payer OTHER, SELFPAY ==
[2021-07-06 19:41] VITALS: BP 153/92; PULSE 92; RESP 14; TEMP 36.6; O2SAT 100
--- NOTE | 2021-07-06 20:03 | ED.EAR ---
HPI - Ear Problem General Chief complaint: Ear Stated complaint: ear and jaw pain History of Present Illness HPI Narrative: This is a 36-year-old female presented to the urgent care complaining of ear pain swelling and her jaw and some throat or gum pain patient states is been going on for some time she been taking Tylenol and ibuprofen for the pain Related Data Allergies Allergy/AdvReac Type Severity Reaction Status Date / Time Penicillins Allergy Intermediate hives Verified 07/06/21 19:49 Review of Systems Review of Systems: CONSTITUTIONAL: Denies fever, chills, or sweats. EYES: Denies visual changes, redness, or discharge. ENT: Denies rhinorrhea, congestion, sore throat, or reports otalgia. CARDIOVASCULAR:Denies chest pain, palpitations, or edema. RESPIRATORY: Denies cough or dyspnea. GASTROINTESTINAL: Denies abdominal pain, nausea, vomiting, or diarrhea. GENITOURINARY: Denies dysuria or hematuria. SKIN:[Denies rash or itching. MUSCULOSKELETAL:Denies back pain, joint pain, or myalgia. NEUROLOGIC: Denies headache, numbness, or weakness. PSYCHIATRIC:Denies anxiety or depression [facility] Past Medical History Medical History Gestational diabetes Gestational hypertension Ovarian cyst Pain, dental Pharyngitis Positive urine drug screen +OPI 05/08/20 Threatened labor Upper respiratory infection Surgical History Surgical History H/O LEEP History of section 08/16/01 C/S male 6lbs 14oz 06/25/04 C/S female 6lbs 10 oz 05/20/20, c/s, full term 37w4d, female, 6#5, GDM, GHTN History of left oophorectomy Family History Family History Father Diabetes mellitus Hypertension Sibling Hypertension Mother Hypertension Other Cerebrovascular accident Heart disease Social History Social History Smoking packs per day: 0.5 Smoking cigarettes per day: 10.0 Years smoked: 20 Smoking pack-years: 10.00 Smoking status: Current every day smoker Tobacco type: cigarettes Second hand tobacco smoke exposure: Yes Alcohol intake: never Substance use: current Substance use type: opiates Other substance usage details: pos uds 05/08/20 Gender identity (if verbalized by the patient): Female Sexual Orientation (if Verbalized by the Patient): Straight or Heterosexual Spiritual care concerns: No Comments At time as signature, I have reviewed and agree with nursing past medical, social, surgical and family history. Please see nursing chart for further information. There is no relevant family history pertinent to the presenting complaint. Exam Narrative: GENERAL:Well-appearing, well-nourished, and in no acute distress. HEAD:Normocephalic, atraumatic. EYES: PERRLA and EOMI. ENT: Nares clear, no rhinorrhea or epistaxis. Mucous membranes moist. TM bulging on right with clear fluid noted NECK: Supple. CHEST: Clear to auscultation. No respiratory distress. HEART: Regular rate and rhythm. Normal peripheral pulses. ABDOMEN: Soft, nontender, nondistended, normal active bowel sounds. EXTREMITIES: Normal range of motion. No edema. SKIN: Warm, dry, no rash. NEURO: No focal deficits. Alert and oriented x3. Course Vital Signs Vital signs: Vital Signs Temperature 97.8 F 07/06/21 19:41 Pulse Rate 92 07/06/21 19:41 Respiratory Rate 14 07/06/21 19:41 Blood Pressure 153/92 H 07/06/21 19:41 Pulse Oximetry 100 07/06/21 19:41 Temperature 97.8 F 07/06/21 19:41 Pulse Rate 92 07/06/21 19:41 Respiratory Rate 14 07/06/21 19:41 Blood Pressure 153/92 H 07/06/21 19:41 Pulse Oximetry 100 07/06/21 19:41 Medical Decision Making Vital Signs Vital Signs: Vital Signs Temperature 97.8 F 07/06/21 19:41 Pulse Rate 92 07/06/21 19:41 Respiratory Rate 14
== END 2021-07-06 20:16 | disposition home or self-care (01) ==
PROVIDERS: Emergency Provider Nurse Practitioner Family
DX: H66.90 Otitis media, unspecified, unspecified ear (principal); J02.9 Acute pharyngitis, unspecified; F17.210 Nicotine dependence, cigarettes, uncomplicated
CPT/HCPCS: 99213; G0463

== ENCOUNTER 2022-11-03 14:35 | Emergency (ER) | payer OTHER, SELFPAY ==
[2022-11-03 14:44] VITALS: BP 153/93; PULSE 84; RESP 16; TEMP 36.6; O2SAT 100
--- NOTE | 2022-11-03 14:59 | ED.GENADULT ---
HPI - General Adult General Chief complaint: Upper Respiratory Infection Stated complaint: Sore Throat Source: patient Mode of arrival: ambulatory Limitations: no limitations History of Present Illness HPI narrative: Patient presents for evaluation of sick symptoms which include sinus congestion, sore throat, hot flashes and chills. Symptom onset yesterday. Her daughter tested positive for strep last week and a friend tested positive for COVID at the end of last week. Patient has never had COVID in the past. She denies any nausea, vomiting, diarrhea. She has an occasional cough and exertional dyspnea. She smokes 1/2 ppd. She is taking motrin for her symptoms. Related Data Allergies Allergy/AdvReac Type Severity Reaction Status Date / Time Penicillins Allergy Intermediate hives Verified 07/06/21 19:49 Review of Systems Review of Systems: CONSTITUTIONAL: Reports hot flashes and chills. EYES: Denies visual changes, redness, or discharge. ENT: Reports sore throat and sinus congestion. Denies otalgia. CARDIOVASCULAR: Denies chest pain, palpitations, or edema. RESPIRATORY: Reports cough and exertional dyspnea GASTROINTESTINAL: Denies abdominal pain, nausea, vomiting, or diarrhea. GENITOURINARY: Denies dysuria or hematuria. SKIN: Denies rash or itching. MUSCULOSKELETAL: Denies back pain, joint pain, or myalgia. NEUROLOGIC: Denies headache, numbness, dizziness, or weakness. PSYCHIATRIC: Denies anxiety or depression. [facility] Past Medical History Medical History Gestational diabetes Gestational hypertension Ovarian cyst Pain, dental Pharyngitis Positive urine drug screen +OPI 05/08/20 Threatened labor Upper respiratory infection Surgical History Surgical History H/O LEEP History of section 08/16/01 C/S male 6lbs 14oz 06/25/04 C/S female 6lbs 10 oz 05/20/20, c/s, full term 37w4d, female, 6#5, GDM, GHTN History of left oophorectomy Family History Family History Father Diabetes mellitus Hypertension Sibling Hypertension Mother Hypertension Other Cerebrovascular accident Heart disease Social History Social History Smoking packs per day: 0.5 Smoking cigarettes per day: 10.0 Years smoked: 20 Smoking pack-years: 10.00 Smoking status: Current every day smoker Tobacco type: cigarettes Second hand tobacco smoke exposure: Yes Alcohol intake: never Substance use: current Substance use type: opiates Other substance usage details: pos uds 05/08/20 Living arrangements: with family Gender identity (if verbalized by the patient): Female Sexual Orientation (if Verbalized by the Patient): Straight or Heterosexual Spiritual care concerns: No Exam Narrative: GENERAL: Well-appearing, well-nourished, and in no acute distress. HEAD: Normocephalic, atraumatic. EYES: PERRLA and EOMI. ENT: Nares clear, no rhinorrhea or epistaxis. Mucous membranes moist. Oropharynx without tonsillar hypertrophy exudate or other lesions. Bilateral TMs [place] nonbulging NECK: Supple. No adenopathy or masses. No carotid bruits or JVD CHEST: Clear to auscultation. No respiratory distress. No wheezes rales or rhonchi HEART: Regular rate and rhythm. No murmur heard. Normal peripheral pulses. ABDOMEN: Soft, nontender, nondistended, normal active bowel sounds. EXTREMITIES: Normal range of motion. No edema. SKIN: Warm, dry, no rash. NEURO: No focal deficits. Alert and oriented x3. PSYCH: Normal mood and affect. Course Course Emergency Course: This is a 37-year-old female who presented for evaluation of sick symptoms after recent exposures to strep and COVID. Strep here negative. COVID positive. Discussed risks vs benefits of Paxlovid. Will avoid therap
== END 2022-11-03 15:20 | disposition home or self-care (01) ==
PROVIDERS: Emergency Provider Nurse Practitioner; PCP Emergency Medicine
DX: U07.1 COVID-19 (principal); F17.210 Nicotine dependence, cigarettes, uncomplicated
CPT/HCPCS: 87081; 87426; 87880; 99213; C9803; G0463

== ENCOUNTER 2023-04-14 13:57 | Emergency (ER) | payer OTHER, SELFPAY ==
--- NOTE | 2023-04-14 14:02 | ED.DENTAL ---
HPI - Dental/Oral General Chief complaint: Dental/Oral Stated complaint: Toothh pain/swelling Time Seen by Provider: 04/14/23 14:03 Source: patient and RN notes reviewed History of Present Illness HPI Narrative: Patient is a 38-year-old female who presents to urgent care with complaints of left facial swelling and left lower dental pain. Patient states it started yesterday. Patient has been taking Aleve for the pain. Denies any fevers, nausea or vomiting. No acute distress noted. Patient aware of the plan of care. Some parts of this dictation were generated by voice recognition software and may contain typographical and/or grammatical inaccuracies. Related Data Home Medications Medication Instructions Recorded Confirmed No Home Medications 04/14/23 04/14/23 Allergies Allergy/AdvReac Type Severity Reaction Status Date / Time Penicillins Allergy Intermediate hives Verified 07/06/21 19:49 Review of Systems Review of Systems: CONSTITUTIONAL: Denies fever, chills, or sweats. EYES: Denies visual changes, redness, or discharge. ENT: Denies rhinorrhea, congestion, sore throat, or otalgia. Reports of left lower dental pain and left facial swelling CARDIOVASCULAR: Denies chest pain, palpitations, or edema. RESPIRATORY: Denies cough or dyspnea. GASTROINTESTINAL: Denies abdominal pain, nausea, vomiting, or diarrhea. GENITOURINARY: Denies dysuria or hematuria. SKIN: Denies rash or itching. MUSCULOSKELETAL: Denies back pain, joint pain, or myalgia. NEUROLOGIC: Denies headache, numbness, or weakness. All other systems reviewed are negative, except as documented in HPI. [facility] Past Medical History Medical History Gestational diabetes Gestational hypertension Ovarian cyst Pain, dental Pharyngitis Positive urine drug screen +OPI 05/08/20 Threatened labor Upper respiratory infection Surgical History Surgical History H/O LEEP History of section 08/16/01 C/S male 6lbs 14oz 06/25/04 C/S female 6lbs 10 oz 05/20/20, c/s, full term 37w4d, female, 6#5, GDM, GHTN History of left oophorectomy Family History Family History Father Diabetes mellitus Hypertension Sibling Hypertension Mother Hypertension Other Cerebrovascular accident Heart disease Social History Social History Smoking packs per day: 0.5 Smoking cigarettes per day: 10.0 Years smoked: 20 Smoking pack-years: 10.00 Smoking status: Current every day smoker Tobacco type: cigarettes Second hand tobacco smoke exposure: Yes Alcohol intake: never Substance use: current Substance use type: opiates Other substance usage details: pos uds 05/08/20 Living arrangements: with family Gender identity (if verbalized by the patient): Female Sexual Orientation (if Verbalized by the Patient): Straight or Heterosexual Spiritual care concerns: No Comments At the time of my signature, I reviewed and agree with the nursing past medical, surgical, social, and family history. There is no relevant family history pertinent to the patient complaint. Exam Narrative: GENERAL: This is a well-nourished, well-developed patient, in no apparent distress. HEAD: normocephalic, atraumatic. EYES: PERRL. Sclera clear/white. Vision is grossly intact. EARS: External ears normal NOSE: External nose normal with no obvious nasal discharge, nares without redness, no rhinorrhea. THROAT: Mucous membranes moist DENTAL: Moderate left facial swelling with notable abscess to the lower left 1st premolar with surrounding erythema NECK: Neck supple, non-tender without lymphadenopathy SKIN: warm, intact with no suspicious lesions or rash, good texture and turgor. NEURO: awake, alert, and oriented to person, [place]
[2023-04-14 14:03] VITALS: BP 156/71; PULSE 132; RESP 20; TEMP 36.6; O2SAT 98
[2023-04-14 14:07] VITALS: BP 156/71; PULSE 132; RESP 20; TEMP 36.6; O2SAT 98
== END 2023-04-14 14:14 | disposition home or self-care (01) ==
PROVIDERS: Emergency Provider Nurse Practitioner Family
DX: K04.7 Periapical abscess without sinus (principal); F17.210 Nicotine dependence, cigarettes, uncomplicated
CPT/HCPCS: 99213; G0463

== ENCOUNTER 2025-09-14 11:50 | Emergency (ER) | payer BC, SELFPAY ==
[2025-09-14 11:52] VITALS: BP 119/74; PULSE 127; RESP 16; TEMP 36.6; O2SAT 100
[2025-09-14 12:19] LABS: EDSTREPNEGPOS1 Negative (Negative)
[2025-09-14 12:23] LABS: EDCOVIDSCREEN Negative (Negative); EDINFLUASCREEN Negative (Negative); EDINFLUBSCREEN Negative (Negative)
--- NOTE | 2025-09-14 12:40 | ED_ITS ---
HPI - URI/Sore Throat General Chief Complaint: Upper Respiratory Infection Stated Complaint: throat / ears Time Seen by Provider: 09/14/25 12:25 Source: patient and RN notes reviewed Mode of arrival: ambulatory Limitations: no limitations History of Present Illness HPI Narrative: 40-year-old female presents [facility] complaining of right ear pain, swollen lymph nodes,, sore throat, cough, congestion for last 2-3 days. Patient denies any other upper respiratory symptoms, chest pain difficulty breathing, nausea, vomiting, diarrhea, abdominal pain, fevers, body aches, chills, or any other symptoms. Patient denies any significant past medical problems. Related Data Home Medications ?Medication ?Instructions ?Recorded ?Confirmed ?Last Taken ?Type No Home Medications 04/14/23 04/14/23 U nknown History Allergies Allergy/AdvReac Type Severity Reaction Status Date / Time Penicillins Allergy Intermediate hives Verified 09/14/25 12:00 Review of Systems Review of Systems: CONSTITUTIONAL: Denies fever, chills, or sweats. EYES: Denies visual changes, redness, or discharge. ENT: Positive for congestion, sore throat, or otalgia. Negative for rhinorrhea CARDIOVASCULAR: Denies chest pain, palpitations, or edema. RESPIRATORY: Positive for cough. Negative for dyspnea. GASTROINTESTINAL: Denies abdominal pain, nausea, vomiting, or diarrhea. GENITOURINARY: Denies dysuria or hematuria. SKIN: Denies rash or itching. MUSCULOSKELETAL: Denies back pain, joint pain, or myalgia. NEUROLOGIC: Denies headache, numbness, or weakness. PSYCHIATRIC: Denies anxiety or depression. All other systems reviewed are negative, except as documented in HPI. [facility] Past Medical History Medical History Positive urine drug screen +OPI 05/08/20 Gestational diabetes Gestational hypertension Threatened labor Pain, dental Pharyngitis Upper respiratory infection Ovarian cyst Surgical History Surgical History History of section 08/16/01 C/S male 6lbs 14oz 06/25/04 C/S female 6lbs 10 oz 05/20/20, c/s, full term 37w4d, female, 6#5, GDM, GHTN History of left oophorectomy H/O LEEP Family History Family History Father Diabetes mellitus Hypertension Sibling Hypertension Mother Hypertension Other Cerebrovascular accident Heart disease Social History Social History Smoking packs per day: 0.5 Smoking cigarettes per day: 10.0 Years smoked: 20 Smoking pack-years: 10.00 Smoking status: Current every day smoker Tobacco type: cigarettes Second hand tobacco smoke exposure: Yes Alcohol intake: never Substance use: current Substance use type: opiates Other substance usage details: pos uds 05/08/20 Living arrangements: with family Gender identity (if verbalized by the patient): Female Sexual Orientation (if Verbalized by the Patient): Straight or Heterosexual Spiritual care concerns: No Comments At the time of my signature, I reviewed and agree with the nursing past medical, surgical, social, and family history. There is no relevant family history pertinent to the patient complaint. Exam Narrative: GENERAL: This is a well-nourished, well-developed adult, in no apparent distress. They are non ill-appearing, nontoxic appearing. HEAD: normocephalic, atraumatic. EYES: Sclera clear/white. Conjunctiva normal. Vision is grossly intact. Extraocular movements intact EARS: External ears normal, auditory canals clear and without drainage, TMs normal without perforation. Hearing grossly intact. NOSE: External nose normal with no obvious nasal discharge, nasal turbinates without redness, no rhinorrhea. THROAT: Mucous membranes moist, posterior pharynx clear, without erythema or swelling. Uvula midline. Postnasal drip present. NECK: Neck supple, mild tender cervical lymphadenopathy, no masses or thyromegaly. CARDIOVASCULAR: Regular rate and rhythm without murmurs, gallops, or rubs. RESPIRATORY: Clear to auscultation. Breath sounds equal bilaterally. No wheezes, rales, or rhonchi. SKIN: warm, Dry, intact with no suspicious lesions or rash, good texture and turgor. NEURO: awake, alert, and oriented to person, place and time. There were no obvious focal neurologic abnormalities. EXTREMITIES: No joint tenderness, effusion, or edema noted. BACK: Nontender without deformity. No CVA tenderness. Course Course Level of Care: Express Care Visit Vital Signs Vital signs: Vital Signs Temperature 97.8 F 09/14/25 11:52 Pulse Rate 127 H 09/14/25 11:52 Respiratory Rate 16 09/14/25 11:52 Blood Pressure 119/74 09/14/25 11:52 Pulse Oximetry 100 09/14/25 11:52 Oxygen Delivery Room Air 09/14/25 11:52 Temperature 97.8 F 09/14/25 11:52 Pulse Rate 127 H 09/14/25 11:52 Respiratory Rate 16 09/14/25 11:52 Blood Pressure 119/74 09/14/25 11:52 Pulse Oximetry 100 09/14/25 11:52 Oxygen Delivery Room Air 09/14/25 11:52 MDM MDM Narrative Medical decision making narrative: Rapid COVID, flu, strep were negative. Throat culture is pending. Likely viral upper respiratory infection. Discussed supportive care. Discussed physical exam findings. Advised supportive measures and signs/symptoms to go to the ER. Pt is appropriate for outpt treatment and f/u. Differential Diagnosis Differential Diagnosis: Differential diagnostic considerations for upper respiratory infection include upper respiratory infection, croup, otitis media, sinusitis, viral infection, bronchitis, influenza, pharyngitis, strep, uvulitis. Lab Data MDM Lab Attestation statement: I personally reviewed the patient's lab results. Labs: Lab Results 09/14/25 09/14/25 Range/Units 12:16 12:20 POC Influenza A Ag Negative (Negative) POC Influenza B Ag Negative (Negative) POC SARS CoV-2 Ag Negative (Negative) POC Grp A Strep Screen Negative (Negative) Critical Care Time Critical Care Time Critical Care Time: No Discharge Plan Discharge Clinical Impression: Upper respiratory infection Qualifiers: URI type: unspecified viral URI Qualified Code(s): J06.9 - Acute upper respiratory infection, unspecified Patient Disposition: Home Condition: Stable Instructions: Antibiotic Form, Upper Respiratory Infection (ED) Additional Instructions: Your rapid strep swab was negative today at [facility]. You will be notified in a few days if the culture comes back positive for strep, and appropriate antibiotics will be called in for you at that time. Your symptoms are likely due to a viral illness, which is not treated with antibiotics. Viral symptoms can be present for up to 10-14 days. Take Tylenol or ibuprofen as needed for fever or pain. Follow instructions on the bottle Rest and stay hydrated. Follow up with your PCP in 3-5 days if symptoms are not improving. Go to the ER immediately if you developed chest pain, vomiting, worsening symptoms, difficulty breathing or swallowing, or any serious concerns. Patient Language: Malawian Prescriptions: No Action No Home Medications Follow-up/Referrals: Salinas,Izabel Eduardo APN [Primary Care Provider, Unknown] Stand Alone Forms: Work/School Release IP Time of Disposition: 12:36
== END 2025-09-14 12:40 | disposition home or self-care (01) ==
PROVIDERS: PCP Nurse Practitioner Family
DX: J06.9 Acute upper respiratory infection, unspecified (principal); Z20.822 Contact with and (suspected) exposure to COVID-19; F17.210 Nicotine dependence, cigarettes, uncomplicated
CPT/HCPCS: 87081; 87426; 87804; 87880; 99213; G0463